=== PATIENT | female | born 1990 ===

== ENCOUNTER 2017-07-21 20:40 | Inpatient (IN) | payer OTHER ==
[2017-07-21] MEDS ORDERED: Lactated Ringer's 1,000 ML IV SCH ×2 (21:15)
[2017-07-21] MEDS ORDERED: Oxytocin 30 units/LR 500ML 30 U/500 ML BAG IV PRN (21:21)
[2017-07-21 21:24] VITALS: BMI 25.7
[2017-07-21 21:30] LABS: BASO % 0.2 % (0.0-2.0); EOS # 0.1 K/uL (0.0-0.7); EOS % 0.9 % (0.0-4.0); HEMATOCRIT 34.5 % (34.0-47.0); LYMPH # 2.4 K/uL (1.0-4.3); LYMPH % 15.1 % (20.0-40.0); MEAN CELL VOLUME 92.1 fl (81.0-99.0); MEAN CORPUSCULAR HEMOGLOBIN 30.4 pg (27.0-31.0); MEAN PLATELET VOLUME 7.6 fl (7.2-11.7); MONO % 6.2 % (0.0-10.0); NEUT # 12.1 K/uL (1.8-7.0); NEUT % 77.6 % (50.0-75.0); RED CELL DISTRIBUTION WIDTH 13.5 % (11.5-14.5); WHITE BLOOD COUNT 15.6 K/uL (4.8-10.8)
[2017-07-21 21:41] LABS: ALB/GLOB RATIO 1.2 (1.0-2.1); ALKALINE PHOSPHATASE 77 U/L (38-126); ALT/SGPT 28 U/L (9-52); AST/SGOT 22 U/L (14-36); BILIRUBIN,TOTAL < 0.1 mg/dl (0.2-1.3); BLOOD UREA NITROGEN 3 mg/dl (7-17); CALCIUM 8.9 mg/dL (8.4-10.2); CARBON DIOXIDE 21 mmol/L (22-30); CHLORIDE 108 mmol/L (98-107); GFR AFRICAN-AMERICAN > 60; GLUCOSE,RANDOM 82 mg/dL (65-105); POTASSIUM 3.7 MMOL/L (3.6-5.0); SODIUM 141 mmol/l (132-148); TOTAL PROTEIN 6.9 G/DL (6.3-8.2)
[2017-07-21] MEDS ORDERED: Oxytocin 30 units/LR 500ML 30 UNIT/500 ML BAG IV SCH (22:00)
[2017-07-22] MEDS ORDERED: Nalbuphine 20 mg/ml Inj (1 ml) IVP ONE (00:13)
[2017-07-22] MEDS ORDERED: Nalbuphine 20 mg/ml Inj (1 ml) ONE (00:19)
[2017-07-22] MEDS ORDERED: Gentamicin 300 MG in Sodium Chloride 0.9% 100 ML IVPB STA (00:42)
--- NOTE | 2017-07-23 10:12 | CP.PCM.HP ---
History of Present Illness - History of Present Illness History of Present Illness: Patient was transferred here from [facility]. 26 yo , f, with a history of her last menstrual period in January 2017 who states that her periods are irregular and that she is not sure the exact date of her LMP. She presents at 22 weeks and 4 days by an ultrasound done 2 days ago in [facility]. She initially presented to [place] ED earlier 2 days ago with complaints lower back pain and pelvic pain and some vaginal bleeding. Evaluation included an OB ultrasound which showed a 22 week and 4 day gestation in a footling breech presentation; dilated cervix with presence of lower extremities within the cervical canal. Per Dr. Bello states he was told that the cervix is 4cm dilated. Pt denies srom or coitus in past 2+wks. Pt states she had care with a clinic in [place]- she does not recall the name and has no records with her. she states she was not told her EDC - and her corroborates this. Patient today s/p at 22.4 weeks( by US) with nonviable fetus secondary to UTI. PMD: Naty Funk. "[facility] in [facility]" PMHx: denies PSHx: denies Allergies: pcn urticaria medic:PNV shx: denies tobacco, etoh, or drugs Present on Admission - Present on Admission Any Indicators Present on Admission: No History of DVT/PE: No History of Uncontrolled Diabetes: No Urinary Catheter: No Decubitus Ulcer Present: No Past Patient History - Infectious Disease Hx of Infectious Diseases: None - Past Social History Smoking Status: Never Smoked - CARDIAC Hx Cardiac Disorders: No Hx Hypertension: No - PSYCHIATRIC Hx Depression: No - SURGICAL HISTORY Hx Surgeries: No - ANESTHESIA Hx Anesthesia: No Meds Allergies/Adverse Reactions: Allergies Allergy/AdvReac Type Severity Reaction Status Date / Time Penicillins Allergy URTICARIA Verified 07/21/17 16:27 Physical Exam - Constitutional Appears: Non-toxic - Head Exam Head Exam: ATRAUMATIC, NORMOCEPHALIC - Eye Exam Eye Exam: Normal appearance - ENT Exam ENT Exam: Mucous Membranes Moist - Neck Exam Neck exam: Positive for: Normal Inspection. Negative for: Tenderness - Respiratory Exam Respiratory Exam: Clear to Auscultation Bilateral. absent: Rales, Rhonchi, Wheezes, Respiratory Distress - Cardiovascular Exam Cardiovascular Exam: REGULAR RHYTHM, +S1, +S2 - GI/Abdominal Exam GI & Abdominal Exam: Normal Bowel Sounds, Soft. absent: Tenderness Additional comments: Uterus: Firm below umbilical level - Exam Additional comments: lochia: normal bleeding less than menses - Extremities Exam Extremities exam: Positive for: normal inspection. Negative for: calf tenderness Results - Vital Signs Recent Vital Signs: Last Vital Signs Temp 97.9 F 07/23/17 08:41 Pulse 66 07/23/17 08:41 Resp 20 07/23/17 08:41 BP 101/68 07/23/17 08:41 Pulse Ox 98 07/23/17 08:41 - Labs Result Diagrams: 07/21/17 21:24 07/21/17 21:25 Labs: Laboratory Results - last 24 hr 07/21/17 21:57 RPR Nonreactive Assessment & Plan - Assessment and Plan (Free Text) Plan: Assessment/plan 26 yo s/p at 22.4 weeks( by US) with nonviable fetus secondary to chorioamnionitis 1) Labor@ 22.4weeks secondary to UTI -s/p clindamycin and gentamicin -ciprofloxacin 500 mg BID for 7 days on discharge
--- NOTE | 2017-07-23 12:09 | CP.PCM.PN ---
Addendum entered and electronically signed by Farhat Kelly MD 07/23/17 16:24: 1) Labor at 22.4weeks - may be secondary to UTI Original Note: <Farhat Kelly - Last Filed: 07/23/17 12:04> Subjective - Date & Time of Evaluation Date of Evaluation: 07/23/17 Time of Evaluation: 07:55 - Subjective Subjective: Patient seen and examined bedside s/p delivery at 22.4 weeks GA with nonviable fetus doing well in PPD # 1. Patient denies fever, dysuria, n/v,d, pelvic pain. lochia less than menses. AOB, urinating frequent. Tolerating regular diet. Reports flatus, no BM yet. Reports she desires to go home. Objective - Vital Signs/Intake and Output Vital Signs (last 24 hours): Temp Pulse Resp BP Pulse Ox 97.9 F 66 20 101/68 98 07/23/17 08:41 07/23/17 08:41 07/23/17 08:41 07/23/17 08:41 07/23/17 08:41 - Medications Medications: Current Medications Ibuprofen (Motrin Tab) 600 mg PO Q6 PRN PRN Reason: Pain, Mild (1-3) - Labs Labs: 07/21/17 21:24 07/21/17 21:25 - Constitutional Appears: Well, Non-toxic, No Acute Distress - Head Exam Head Exam: ATRAUMATIC, NORMOCEPHALIC - Eye Exam Eye Exam: Normal appearance - ENT Exam ENT Exam: Mucous Membranes Moist - Neck Exam Neck Exam: Full ROM, Normal Inspection - Respiratory Exam Respiratory Exam: Clear to Ausculation Bilateral. absent: Rales, Rhonchi, Wheezes, Respiratory Distress - Cardiovascular Exam Cardiovascular Exam: REGULAR RHYTHM, +S1, +S2 - GI/Abdominal Exam GI & Abdominal Exam: Soft, Normal Bowel Sounds. absent: Tenderness Additional comments: Uterus firm below umbilicus - Exam Additional comments: Lochia: less than menses - Extremities Exam Extremities Exam: Normal Inspection. absent: Calf Tenderness - Back Exam Back Exam: NORMAL INSPECTION. absent: CVA tenderness (L), CVA tenderness (R), paraspinal tenderness - Neurological Exam Neurological Exam: Alert, Awake, Oriented x3 - Psychiatric Exam Psychiatric exam: Normal Affect, Normal Mood - Skin Skin Exam: Intact Assessment and Plan - Assessment and Plan (Free Text) Plan: 26 yo s/p at 22.4 weeks( by US) with nonviable fetus secondary to UTI 1) Labor at 22.4weeks -secondary to UTI -s/p clindamycin and gentamicin x 1 day -ciprofloxacin 500 mg BID for 7 days planned for discharge -f/u CBc with diff <DylansharronjoanRoger S - Last Filed: 07/23/17 17:14> Subjective - Subjective Subjective: OB H addendum: Patient seen and examined by me. Agree with above assessment and plan following modifications and additions. Subjective: Patient states bleeding is light. She denies uterine cramping abdominal pelvic pain. She states she is ready for discharge home. Objective: WBC 12.1 hemoglobin 10.3 Impression: Status post delivery at 22.4 weeks Urinary tract infection Plan: DC patient to follow up in 4 weeks and clinically she received care. Patient was advised for future she may follow up at the [facility]. Patient was advised that early care will be essential and that future pregnancies cervical length measurement may be required, possible cervical cerclage may be indicated and possible injections to prevent labor with Burr may be indicated. Therefore that compliance with early care is essential for optimal outcome. Rx ciprofloxacin Rx ferrous sulfate The discharge summary for additional details. Objective - Vital Signs/Intake and Output Vital Signs (last 24 hours): Temp Pulse Resp BP Pulse Ox 98.7 F 79 18 102/66 68 L 07/23/17 16:40 07/23/17 16:40 07/23/17 16:40 07/23/17 16:40 07/23/17 16:40 - Labs Labs: 07/23/17 12:45 07/21/17 21:25
[2017-07-23 13:07] LABS: BASO # 0.1 K/uL (0.0-0.2); BASO % 0.4 % (0.0-2.0); EOS # 0.3 K/uL (0.0-0.7); EOS % 2.8 % (0.0-4.0); LYMPH # 2.4 K/uL (1.0-4.3); LYMPH % 19.7 % (20.0-40.0); MEAN CELL VOLUME 91.1 fl (81.0-99.0); MEAN CORPUSCULAR HEMOGLOBIN 31.2 pg (27.0-31.0); MEAN CORPUSCULAR HGB CONC 34.3 g/dL (33.0-37.0); MEAN PLATELET VOLUME 7.2 fl (7.2-11.7); MONO # 0.8 K/uL (0.0-0.8); MONO % 6.4 % (0.0-10.0); NEUT # 8.6 K/uL (1.8-7.0); NEUT % 70.7 % (50.0-75.0); NRBC % 0.1 % (0.0-0.0); RED CELL DISTRIBUTION WIDTH 13.4 % (11.5-14.5); WHITE BLOOD COUNT 12.1 K/uL (4.8-10.8)
--- NOTE | 2017-07-23 17:04 | OBDCSUM ---
Datetime: 07/23/2017 15:25 Discharged to, Provider: Home Follow up at, Provider: [facility] Disch Instr Activity: Normal activity; May Shower Disch Instr Diet: Regular Discharge Instructions, Provider: Routine instructions given Discharge Diagnosis, Provider: Delivery Discharge Time: 07/23/2017 15:25 Follow up in weeks, Provider: 6 weeks Contraception discussed, Prov: No Disch Activity Restrictions: No exercising; No lifting; No sexual activity; Nothing in vagina - Inte rcourse, tampons, douche Discharge Comment, Provider: 26 yo , s/p early at 22.4 weeks( by US) with nonvi able fetus secondary maybe to UTI.Patient received clindamycin, gentamicin. Delivered nonviable fetus male on 07/22/17 @ 04:12 am ,weight 586 g. Patient doing well, stable for discharge. Prescription given, antibiotics and iron Ciprofloxacin 500 mg 1 tab PO BID for 7 days -Ferrous Sulfate 325 mg 1 tab PO daily -Discharge today Ambulate w/ caution, nothing in vagina, pelvic rest for 6 weeks, no heavy lifting, avoid stairs, i f excessive bleeding or fever without relief from Tylenol go to ED - Advised for [facility] within 6 weeks Farhat Kelly PGY2 OB attending addendum: Patient seen and examined by me agree with above assessment and plan. pt and partner advised to wait a minimum of 6mos before attempting preg and wait longer if have no t yet achieved closure for the preg loss. Discharge Diagnosis Prov Other: UTI
[2017-07-23 20:43] VITALS: BP 98/62; PULSE 77; RESP 20; TEMP 98.5; O2SAT 99
--- NOTE | 2017-07-24 10:06 | OBADHP ---
Datetime: 07/21/2017 23:07 Admit Comment, IP Provider: Patient was transferred here from [facility]. Patient is a 3 with a history of her last menstrual period in January 2017 who states that h er periods are irregular and that she is not sure the exact date of her LMP. She presents at 22 weeks and 4 days by an ultrasound done today at [facility]. She initially presented to [facility] today with complaints lower back pain and pelvic pain and some vaginal bleeding. Evaluatio n included an OB ultrasound which showed a 22 week and 4 day gestation in a footling breech presentat ion; dilated cervix with presence of lower extremities within the cervical canal. Per Dr. Eugenia pacheco he was told that the cervix is 4cm dilated. Pt denies srom or coitus in past 2+wks. Pt states she had care with a clinic in [place]- she does not recall the name and has no records with her. she states she was not told her EDC- and her corroborates this. PMHx: denies PSHx: denies Allergies: pcn urticaria medic: shx: denies tobacco, etoh, or drugs I: Labor@ 22.4wks UTI P: I was contacted by Dr. Bello regarding pt. He was advised that pt should be transferred to [facility] which has a level 3 hospital. [facility] refused transfer. I then contacted Dr. Yan who personal ly called [facility] and they continued to refuse acceptance. I subsequently spoke with m perfusionist for [place], [place] who refused acceptance due to pt's dilation. Pt was accepted for transfe r to [facility]. 2. Discussed with pt delivery vs vaginal delivery. Pt advised that at this point fetus ma y b viable OR may be nonviable. Advised that if was viable a would be advised. Pt advised th at ob us showed EGA of 22.4wk which suggests its nonviable and vaginal delivery would be advised. Th is was again d/w pt when FOB arrived. Both times pt stated she desires vaginal delivery. This discus eleuterio and plan of care was d/w Dr. Yan. Dr. Yan advised beginning augmentation with pitocin and starting antibiotics. 3. Pt was als d/w dr zamarripa. She reviewed statistic of 97-98% risk of or servere to moderate n eurodevelpmental impairment. This was discussed with pt and fob and they were asked if they desired n eonatal resuscitation. They declined resuscitation with neonatology. 4. Clindamycin _ Gent Pelvic Type - PN: Adequate Extremities - PN: Normal Abdomen - PN: Normal Back - PN: Normal Lungs - PN: Normal Heart - PN: Normal HEENT - PN: Normal General - PN: Normal Presentation-Admit: Breech FHR - Baseline A Provider: 160 Membranes, Provider: Intact Comments, ACOG Physical Exam: unofficial bedside vaginal us: +movement of LEs visualized. Vital Signs Provider: Reviewed; Within Normal Limits IP Chief Complaint: Vaginal bleeding Dilatation, Provider: 6 Effacement, Provider: 100 IP Adm Impression: , intrauterine IP Admit Plan: Admit to unit
== END 2017-07-23 16:40 | disposition home or self-care (01) | DRG 774 ==
LOC: H.EROB2 20:40 → H.EROB 21:24 → H.L&D 21:53 → H.EROB2 21:56 → H.L&D 22:04 → H.EROB 22:52 → H.L&D 22:53 → H.OB/GYN 22:56 → H.L&D 22:56 → H.MEDSURG1 07-22 14:01
PROVIDERS: ADMIT Obstetrics & Gynecology; ATTEND Obstetrics & Gynecology
PROC: 10E0XZZ Delivery of Products of Conception, External Approach (ICD-10-PCS; principal; 2017-07-21)
DX: O60.12X0 Preterm labor second trimester with preterm delivery second trimester, not applicable or unspecified (principal); O75.3 Other infection during labor; O41.1220 Chorioamnionitis, second trimester, not applicable or unspecified; Z37.0 Single live birth; Z3A.22 22 weeks gestation of pregnancy